=== PATIENT | male | born 1980 | race American Indian/Alaskan Native ===

== ENCOUNTER 2016-11-29 14:13 | Emergency (ER) | payer BC ==
[2016-11-29 15:03] VITALS: BP 103/68
--- NOTE | 2016-11-29 18:40 | Emergency Department Report ---
ED Back Pain/Injury HPI - General Chief Complaint: Back Pain/Injury Stated Complaint: BACK PAIN Time Seen by Provider: 11/29/16 18:23 Source: patient Mode of arrival: Ambulatory Limitations: No Limitations - History of Present Illness Initial Comments: PT states he left work on Monday due to back pain. 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 PT states he rested and his back feels better. PT states he needs a note to return to work. Complaint: back injury Onset/Timin -: days(s) Similar Symptoms Previously: No Place: work Radiation: none Severity scale (0 -10): 6 Quality: aching Consistency: other (improving ) Improves With: other (rest ) Worsens With: movement, other (lifting ) Context: while lifting Associated Symptoms: denies other symptoms. denies: difficulty walking, difficulty urinating, incontinence, fever/chills, constipation, abdominal pain - Related Data Previous Rx's Medication Instructions Recorded Last Taken Type HYDROcodone/ACETAMINOPHEN [[place] 1 each PO Q6HR #20 tablet 01/11/14 Unknown Rx 5/325 Tablet] Ibuprofen [Motrin] 600 mg PO Q8H PRN #60 tablet 01/11/14 Unknown Rx Ibuprofen [Motrin] 600 mg PO Q8H PRN #60 tablet 01/10/15 Unknown Rx methOCARBAMOL [Robaxin] 500 mg PO BID #10 tab 01/10/15 Unknown Rx traMADol [Ultram] 50 mg PO Q6HR PRN #14 tablet 01/10/15 Unknown Rx Ibuprofen [Motrin 800 MG tab] 800 mg PO Q8HR PRN #30 tablet 09/18/15 Unknown Rx Ibuprofen [Motrin] 600 mg PO Q8H PRN #30 tablet 04/14/16 Unknown Rx Silver Sulfadiazine 85 gm TP BID #1 cream..g. 04/14/16 Unknown Rx oxyCODONE [Roxicodone TAB] 5 mg PO Q6HR PRN #15 tablet 04/14/16 Unknown Rx Allergies Allergy/AdvReac Type Severity Reaction Status Date / Time No Known Allergies Allergy Unverified 01/10/15 15:50 ED Review of Systems ROS: Stated complaint: BACK PAIN Other details as noted in HPI Comment: All other systems reviewed and negative Constitutional: denies: fever Gastrointestinal: denies: abdominal pain, nausea, vomiting Genitourinary: other (denies incontinence ) Musculoskeletal: as per HPI ED Past Medical Hx - Past Medical History Previous Medical History?: No - Surgical History Past Surgical History?: No - Social History Smoking Status: Unknown if ever smoked Substance Use Type: None - Medications Home Medications: Home Medications Medication Instructions Recorded Confirmed Last Taken Type HYDROcodone/ACETAMINOPHEN [[place] 1 each PO Q6HR #20 tablet 01/11/14 Unknown Rx 5/325 Tablet] Ibuprofen [Motrin] 600 mg PO Q8H PRN #60 tablet 01/11/14 Unknown Rx Ibuprofen [Motrin] 600 mg PO Q8H PRN #60 tablet 01/10/15 Unknown Rx methOCARBAMOL [Robaxin] 500 mg PO BID #10 tab 01/10/15 Unknown Rx traMADol [Ultram] 50 mg PO Q6HR PRN #14 tablet 01/10/15 Unknown Rx Ibuprofen [Motrin 800 MG tab] 800 mg PO Q8HR PRN #30 tablet 09/18/15 Unknown Rx Ibuprofen [Motrin] 600 mg PO Q8H PRN #30 tablet 04/14/16 Unknown Rx Silver Sulfadiazine 85 gm TP BID #1 cream..g. 04/14/16 Unknown Rx oxyCODONE [Roxicodone TAB] 5 mg PO Q6HR PRN #15 tablet 04/14/16 Unknown Rx ED Physical Exam - General Limitations: No Limitations General appearance: alert, in no apparent distress - Head Head exam: Present: atraumatic, normocephalic, normal inspection - Eye Eye exam: Present: normal appearance. Absent: conjunctival injection - ENT ENT exam: Present: normal exam, normal external ear exam - Neck Neck exam: Present: normal inspection, full ROM - Respiratory Respiratory exam: Present: normal lung sounds bilaterally. Absent: respiratory distress - Cardiovascular Cardiovascular Exam: Present: regular rate, normal rhythm, normal heart sounds - GI/Abdominal GI/Abdominal exam: Present: soft. Absent: tenderness - Rectal Rectal exam: Present: deferred - Extremities Exam Extremities exam: Present: normal inspection, full ROM - Back Exam Back exam: Present: normal inspection, full ROM, tenderness, muscle spasm, paraspinal tenderness (R paraspinal tenderness and muscle spasm ). Absent: CVA tenderness (R), CVA tenderness (L), vertebral tenderness - Neurological Exam Neurological exam: Present: alert, oriented X3, normal gait - Psychiatric Psychiatric exam: Present: normal affect, normal mood - Skin Skin exam: Present: warm, dry, intact ED Course Vital Signs 11/29/16 15:00 Temperature 98.2 F Pulse Rate 75 Respiratory 18 Rate Blood Pressure 103/68 O2 Sat by Pulse 100 Oximetry - Reevaluation(s) Reevaluation #1: 11/29/16 18:42 PT advised proper lifting. PT aware no driving or ETOH after Robaxin - Pulse Oximetry Interpretation Digit-Finger Initial Pulse Oximetry Readin Actions Taken: none ED Medical Decision Making - Differential Diagnosis strain, muscle spasm Critical care attestation.: If time is entered above; I have spent that time in minutes in the direct care of this critically ill patient, excluding procedure time. ED Disposition Clinical Impression: Muscle spasm of back Disposition: DISCHARGED TO HOME OR SELFCARE Is pt being admited?: No Does the pt Need Aspirin: No Condition: Stable Instructions: Low Back Strain (ED) Additional Instructions: No driving or ETOH after Robaxin Referrals: PRIMARY CAREMD [Primary Care Provider] - 3-5 Days SIMON LOO MD [Staff Physician] - 3-5 Days [facility] [Outside] - 3-5 Days Forms: Work/School Release Form(ED) Time of Disposition: 18:43
== END 2016-11-29 19:05 | disposition home or self-care (01) ==
LOC: ED 14:13
DX: M62.830 Muscle spasm of back (principal); X50.0XXA Overexertion from strenuous movement or load, initial encounter; Y93.89 Activity, other specified; Y99.9 Unspecified external cause status; Y92.89 Other specified places as the place of occurrence of the external cause
CPT/HCPCS: 99282

== ENCOUNTER 2016-12-08 14:03 | Emergency (ER) | payer BC ==
[2016-12-08 14:38] VITALS: BP 128/72
== END 2016-12-08 15:10 | disposition left against medical advice (07) ==
LOC: ED 14:03
DX: M54.9 Dorsalgia, unspecified (principal); Z53.21 Procedure and treatment not carried out due to patient leaving prior to being seen by health care provider

== ENCOUNTER 2017-09-22 22:01 | Emergency (ER) | payer BC, OTHER ==
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
[2017-09-23 04:18] VITALS: BP 130/76
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
== END 2017-09-23 06:00 | disposition home or self-care (01) ==
LOC: ED 22:01
DX: S66.911A Strain of unspecified muscle, fascia and tendon at wrist and hand level, right hand, initial encounter (principal); S46.811A Strain of other muscles, fascia and tendons at shoulder and upper arm level, right arm, initial encounter; M54.2 Cervicalgia; V49.40XA Driver injured in collision with unspecified motor vehicles in traffic accident, initial encounter; Y93.89 Activity, other specified; Y99.8 Other external cause status; Y92.410 Unspecified street and highway as the place of occurrence of the external cause
CPT/HCPCS: 99283